=== PATIENT | male | born 1990 | race Caucasian/White ===

== ENCOUNTER 2017-07-20 09:26 | Emergency (ER) | payer MEDICAID ==
[~2017-07-20] VITALS: Ht 177.8 cm; Wt 146.1 kg
[2017-07-20 09:32] VITALS: BP 144/100; Ht 177.8 cm; Wt 146.1 kg
== END 2017-07-20 11:24 | disposition home or self-care (01) ==
LOC: ED 09:26
DX: J06.9 Acute upper respiratory infection, unspecified (principal)
CPT/HCPCS: J7613

== ENCOUNTER 2018-04-30 11:55 | Emergency (ER) | payer SELFPAY ==
[~2018-04-30] VITALS: Ht 180.3 cm; Wt 137.9 kg
[2018-04-30 12:04] VITALS: Ht 180.3 cm; Wt 137.9 kg
[2018-04-30 13:56] VITALS: BP 150/84
== END 2018-04-30 13:56 | disposition home or self-care (01) ==
LOC: ED 11:55
DX: J06.9 Acute upper respiratory infection, unspecified (principal); R51 Headache; F17.210 Nicotine dependence, cigarettes, uncomplicated
CPT/HCPCS: 99406; Q0092

== ENCOUNTER 2019-02-19 17:13 | Emergency (ER) | payer MEDICAID ==
[~2019-02-19] VITALS: Ht 177.8 cm; Wt 163.5 kg
[2019-02-19 21:04] LABS: PLATELET COUNT 291 x10^3mcL (130-400); RED CELL DISTRIBUTION WIDTH 13.7 % (11.5-14.5)
[2019-02-19 21:25] LABS: CARBON DIOXIDE 27.5 mmol/L (21-32); CHLORIDE SERUM 106 mmol/L (98-107); CREATININE SERUM 0.9 mg/dL (0.7-1.3); GFR1 > 60 mL/min; GLUCOSE SERUM 95 mg/dL (74-106); POTASSIUM SERUM 3.8 mmol/L (3.5-5.1); SODIUM SERUM 141 mmol/L (136-145)
[2019-02-19 21:30] LABS: ALBUMIN 3.5 g/dL (3.4-5.0); ALKALINE PHOSPHATASE 79 U/L (46-116); ALT/SGPT 109 U/L (16-63); AST/SGOT 48 U/L (15-37); BILIRUBIN TOTAL 0.3 mg/dL (0.20-1.00); TOTAL PROTEIN, SERUM 7.7 g/dL (6.4-8.2)
[2019-02-19 23:09] VITALS: BP 144/91
== END 2019-02-19 23:10 | disposition home or self-care (01) ==
LOC: ED 17:13
PROVIDERS: Emergency Medicine
DX: M94.0 Chondrocostal junction syndrome [Tietze] (principal); E66.9 Obesity, unspecified; F17.210 Nicotine dependence, cigarettes, uncomplicated; Z71.6 Tobacco abuse counseling
CPT/HCPCS: 36415; 83880; 85378; 99406; Q0092